=== PATIENT | female | born 1965 | race African-American/Black ===

== ENCOUNTER 2016-10-27 09:59 | Inpatient (IN) | payer MEDICARE, MEDICAID ==
[~2016-10-27] VITALS: Ht 172.7 cm; Wt 165.1 kg
[~2016-10-27 09:59] MED LIST: APIX2.5T PO; CINA30 PO; Midodrine Hcl PO; SEVE800T8 PO
[2016-10-27] MEDS ORDERED: METHYLPREDNISOLONE SOD SUCC 125 MG/2 ML VIAL IV STA (10:21)
[2016-10-27] MEDS ORDERED: NITROGLYCERIN OINT 1GM/INCH UDPKT TD STA (10:21)
[2016-10-27] MEDS ORDERED: IPRATROPIUM BROMIDE (0.02%) 0.5MG/2.5ML NEB HHN STA ×2 (10:21→12:15)
[2016-10-27] MEDS ORDERED: ALBUTEROL (0.083%) 2.5MG/3ML NEB HHN STA ×2 (10:21→12:15)
[2016-10-27] MEDS ORDERED: MAGNESIUM 2 G PREMIX 50 ML IV ONE (10:30)
[2016-10-27] MEDS ORDERED: ALBUTEROL (0.5%) 2.5MG/0.5ML NEB HHN ONE ×2 (10:33→12:25)
[2016-10-27 10:49] LABS: BASOPHILS % 0.7 % (0.0-2.0); EOSINOPHILS % 2.6 % (0.0-5.0); HEMATOCRIT. 34.1 % (36.0-48.0); HEMOGLOBIN. 11.2 g/dL (12.0-16.0); LYMPHOCYTES % 14.2 % (20.0-50.0); MEAN CORPUSCULAR HEMOGLOBIN 36.3 pg (28.0-32.0); MEAN CORPUSCULAR VOLUME 110.6 fL (81.0-99.0); MEAN PLATELET VOLUME 8.6 fl (7.4-10.4); MONOCYTES % 7.3 % (2.0-8.0); NEUTROPHILS % 75.2 % (40.0-76.0); PLATELET 162 x1000/uL (130-400); RED BLOOD CELL COUNT 3.09 mill/uL (4.2-5.4); RED CELL DISTRIBUTION WIDTH 18.1 % (11.6-14.6)
[2016-10-27 10:54] LABS: INR 1.1; PROTHROMBIN TIME 11.7 sec
[2016-10-27 11:00] LABS: HCG SCREEN NEGATIVE
[2016-10-27 11:04] LABS: CARBON DIOXIDE 30 mEq/L (21-32); CHLORIDE 94 mEq/L (98-107); CREATINE KINASE 219 IU/L (26-192); TROPONIN I 0.02 ng/mL (0.00-0.04)
[2016-10-27 11:25] LABS: PLATELET ESTIMATE NORMAL
[2016-10-27] MEDS ORDERED: ONDANSETRON HCL 4MG/2ML VIAL IV PRN (18:45)
[2016-10-27] MEDS ORDERED: DIPHENHYDRAMINE 50MG/ML VIAL IV PRN (18:45)
[2016-10-27] MEDS ORDERED: ACETAMINOPHEN 325MG TABLET PO PRN (18:45)
[2016-10-27] MEDS ORDERED: MAGNESIUM/ALUMINUM HYDROXIDE/SIMETHICONE 30ML UDC PO PRN (18:45)
[2016-10-27] MEDS ORDERED: CLONIDINE 0.1MG TABLET PO PRN (18:45)
[2016-10-27] MEDS ORDERED: LORAZEPAM 1MG TABLET PO PRN (19:30)
[2016-10-27] MEDS ORDERED: SEVELAMER CARBONATE 800 MG TABLET PO SCH (21:00)
[2016-10-27] MEDS: SODIUM CHLORIDE 0.9% INJ 3ML FLUSH IVF SCH (21:33)
[2016-10-27] MEDS: FOLIC ACID/VITAMIN B COMP W-C TABLET PO SCH (21:33)
[2016-10-27] MEDS: GUAIFENESIN 200MG/10ML SUGAR FREE UDC PO PRN (21:34)
[2016-10-27] MEDS ORDERED: SEVELAMER CARBONATE 800 MG TABLET PO NR (22:45)
[2016-10-28] MEDS: SODIUM CHLORIDE 0.9% INJ 3ML FLUSH IVF SCH ×3 (06:34→21:21)
[2016-10-28] MEDS: GUAIFENESIN 200MG/10ML SUGAR FREE UDC PO PRN (09:26)
[2016-10-28] MEDS: MIDODRINE HCL 5MG TABLET PO SCH ×2 (09:27→16:24)
[2016-10-28] MEDS: CINACALCET HCL 30MG TABLET PO SCH (09:27)
[2016-10-28] MEDS: SEVELAMER CARBONATE 800 MG TABLET PO SCH ×3 (09:27→17:01)
[2016-10-28] MEDS: APIXABAN 2.5 MG TABLET PO SCH ×2 (09:28→16:31)
[2016-10-28] MEDS: FOLIC ACID/VITAMIN B COMP W-C TABLET PO SCH (09:28)
[2016-10-28] MEDS: IPRATROPIUM/ALBUTEROL 0.5-3(2.5)MG/3ML NEB INH PRN ×2 (12:53→22:23)
[2016-10-28] MEDS ORDERED: METHYLPREDNISOLONE SOD SUCC 125 MG/2 ML VIAL IV NR (13:00)
[2016-10-28] MEDS ORDERED: METHYLPREDNISOLONE SOD SUCC 40 MG/ML VIAL IV SCH (13:34)
[2016-10-28] MEDS: METHYLPREDNISOLONE SOD SUCC 40 MG/ML VIAL IV SCH (21:21)
[2016-10-29] MEDS: IPRATROPIUM/ALBUTEROL 0.5-3(2.5)MG/3ML NEB INH PRN ×2 (00:51→04:38)
[2016-10-29] MEDS: SODIUM CHLORIDE 0.9% INJ 3ML FLUSH IVF SCH ×3 (06:32→22:02)
[2016-10-29] MEDS: METHYLPREDNISOLONE SOD SUCC 40 MG/ML VIAL IV SCH ×2 (06:32→22:03)
[2016-10-29] MEDS: APIXABAN 2.5 MG TABLET PO SCH ×3 (08:18→17:59)
[2016-10-29] MEDS: CINACALCET HCL 30MG TABLET PO SCH (08:18)
[2016-10-29] MEDS: SEVELAMER CARBONATE 800 MG TABLET PO SCH ×3 (08:18→17:55)
[2016-10-29] MEDS: FOLIC ACID/VITAMIN B COMP W-C TABLET PO SCH (08:18)
[2016-10-29] MEDS: MIDODRINE HCL 5MG TABLET PO SCH ×2 (08:19→17:55)
[2016-10-30] MEDS: MIDODRINE HCL 5MG TABLET PO SCH ×2 (05:38→18:05)
[2016-10-30] MEDS: SODIUM CHLORIDE 0.9% INJ 3ML FLUSH IVF SCH ×3 (06:26→22:00)
[2016-10-30 07:43] LABS: HEMATOCRIT. 35.5 % (36.0-48.0); HEMOGLOBIN. 11.8 g/dL (12.0-16.0); MEAN CORPUSCULAR HEMOGLOBIN 36.4 pg (28.0-32.0); PLATELET 172 x1000/uL (130-400); RED BLOOD CELL COUNT 3.23 mill/uL (4.2-5.4); RED CELL DISTRIBUTION WIDTH 17.6 % (11.6-14.6)
[2016-10-30 07:45] LABS: PHOSPHORUS 4.3 mg/dL (2.5-4.9)
[2016-10-30] MEDS: METHYLPREDNISOLONE SOD SUCC 40 MG/ML VIAL IV SCH (10:03)
[2016-10-30] MEDS: SEVELAMER CARBONATE 800 MG TABLET PO SCH ×3 (10:04→18:04)
[2016-10-30] MEDS: APIXABAN 2.5 MG TABLET PO SCH ×2 (10:04→18:06)
[2016-10-30] MEDS: CINACALCET HCL 30MG TABLET PO SCH (10:04)
[2016-10-30] MEDS: FOLIC ACID/VITAMIN B COMP W-C TABLET PO SCH (10:04)
[2016-10-30 12:13] LABS: PLATELET ESTIMATE NORMAL
[2016-10-31] MEDS: SEVELAMER CARBONATE 800 MG TABLET PO SCH (06:30)
[2016-10-31] MEDS: CINACALCET HCL 30MG TABLET PO SCH (08:46)
[2016-10-31] MEDS: FOLIC ACID/VITAMIN B COMP W-C TABLET PO SCH (08:46)
[2016-10-31] MEDS: MIDODRINE HCL 5MG TABLET PO SCH (08:47)
[2016-10-31] MEDS: APIXABAN 2.5 MG TABLET PO SCH (08:49)
[2016-10-31] MEDS ORDERED: PREDNISONE 20MG TABLET PO SCH (09:00)
[2016-10-31 10:26] VITALS: BP 109/86
== END 2016-10-31 14:10 | disposition home or self-care (01) | DRG 291 ==
LOC: ER 10:00 → 8WST 12:04 → EDBEDREQ 12:06 → ENRESERV 18:31
PROVIDERS: ADMIT Internal Medicine; ATTEND Internal Medicine
PROC: 5A1D60Z (ICD-10-PCS; principal; 2016-10-28)
DX: I50.33 Acute on chronic diastolic (congestive) heart failure (principal); N18.6 End stage renal disease; J96.00 Acute respiratory failure, unspecified whether with hypoxia or hypercapnia; Z68.43 Body mass index [BMI] 50.0-59.9, adult; J45.901 Unspecified asthma with (acute) exacerbation; J44.1 Chronic obstructive pulmonary disease with (acute) exacerbation; I27.81 Cor pulmonale (chronic); E66.01 Morbid (severe) obesity due to excess calories; I48.2 Chronic atrial fibrillation; D63.1 Anemia in chronic kidney disease; I27.2 Other secondary pulmonary hypertension; Z79.899 Other long term (current) drug therapy; Z83.3 Family history of diabetes mellitus; Z82.49 Family history of ischemic heart disease and other diseases of the circulatory system; Z99.2 Dependence on renal dialysis; Z80.9 Family history of malignant neoplasm, unspecified
CPT/HCPCS: 36415; 71010; 80053; 80069; 82550; 82962; 83605; 83690; 84484; 84703; 85025; 85610; 87040; 93005; 94640; 94664; 96365; 96366; 96375; 99291; J2920; J2930; J3475; J7030; J7512; J7611; J7620

== ENCOUNTER 2016-12-04 09:19 | Inpatient (IN) | payer MEDICARE, MEDICAID ==
[~2016-12-04] VITALS: Ht 172.7 cm; Wt 164.4 kg
[2016-12-04] MEDS ORDERED: IPRATROPIUM BROMIDE (0.02%) 0.5MG/2.5ML NEB HHN STA (09:47)
[2016-12-04] MEDS ORDERED: ALBUTEROL (0.083%) 2.5MG/3ML NEB HHN STA (09:47)
[2016-12-04] MEDS ORDERED: METHYLPREDNISOLONE SOD SUCC 125 MG/2 ML VIAL IV STA (09:47)
[2016-12-04] MEDS ORDERED: MAGNESIUM 2 G PREMIX 50 ML IV ONE (10:00)
[2016-12-04] MEDS ORDERED: LORAZEPAM 2MG/ML CPJ IV ONE (10:00)
[2016-12-04 10:16] LABS: BASOPHILS % 0.5 % (0.0-2.0); EOSINOPHILS % 1.2 % (0.0-5.0); HEMATOCRIT. 35.7 % (36.0-48.0); HEMOGLOBIN. 11.6 g/dL (12.0-16.0); LYMPHOCYTES % 10.3 % (20.0-50.0); MEAN CORPUSCULAR HEMOGLOBIN 35.6 pg (28.0-32.0); MEAN CORPUSCULAR VOLUME 109.9 fL (81.0-99.0); MEAN PLATELET VOLUME 8.7 fl (7.4-10.4); MONOCYTES % 6.3 % (2.0-8.0); NEUTROPHILS % 81.7 % (40.0-76.0); PLATELET 158 x1000/uL (130-400); RED BLOOD CELL COUNT 3.25 mill/uL (4.2-5.4); RED CELL DISTRIBUTION WIDTH 18.4 % (11.6-14.6)
[2016-12-04 10:27] LABS: INR 1.2; PROTHROMBIN TIME 12.4 sec (9.4-11.6)
[2016-12-04 10:34] LABS: CARBON DIOXIDE 32 mEq/L (21-32); CHLORIDE 96 mEq/L (98-107); TROPONIN I 0.03 ng/mL (0.00-0.04)
[2016-12-04] MEDS ORDERED: ENOXAPARIN 40MG/0.4ML SYR SUBCUT SCH (11:45)
[2016-12-04] MEDS ORDERED: HYDROCODONE/ACETAMINOPHEN 5/325MG TABLET PO PRN (11:45)
[2016-12-04] MEDS ORDERED: IPRATROPIUM/ALBUTEROL 0.5-3(2.5)MG/3ML NEB INH PRN (11:45)
[2016-12-04] MEDS ORDERED: HYDROMORPHONE HCL/PF 2MG/ML CPJ IV PRN (11:45)
[2016-12-04] MEDS ORDERED: DIPHENHYDRAMINE 50MG/ML VIAL IV PRN (11:45)
[2016-12-04] MEDS ORDERED: ONDANSETRON HCL 4MG/2ML VIAL IV PRN (11:45)
[2016-12-04] MEDS ORDERED: DOCUSATE SODIUM 100MG CAPSULE PO PRN (11:45)
[2016-12-04] MEDS ORDERED: GUAIFENESIN 200MG/10ML SUGAR FREE UDC PO PRN (11:45)
[2016-12-04] MEDS ORDERED: MAGNESIUM/ALUMINUM HYDROXIDE/SIMETHICONE 30ML UDC PO PRN (11:45)
[2016-12-04] MEDS ORDERED: NA PHOS,M-B/NA PHOS,DI-BA ENEMA 118ML PR PRN (11:45)
[2016-12-04] MEDS ORDERED: CLONIDINE 0.1MG TABLET PO PRN (11:45)
[2016-12-04] MEDS ORDERED: LORAZEPAM 2MG/ML CPJ IV PRN (11:45)
[2016-12-04] MEDS ORDERED: LEVOFLOXACIN 500MG PREMIX 100 ML IV SCH (15:00)
[2016-12-04] MEDS: METHYLPREDNISOLONE SOD SUCC 125 MG/2 ML VIAL IV SCH ×2 (19:39→23:28)
[2016-12-04] MEDS: APIXABAN 2.5 MG TABLET PO SCH (21:34)
[2016-12-04] MEDS: GUAIFENESIN 600MG ER TABLET PO SCH (21:41)
[2016-12-05] MEDS: IPRATROPIUM/ALBUTEROL 0.5-3(2.5)MG/3ML NEB HHN SCH ×6 (00:10→21:30)
[2016-12-05] MEDS: BUDESONIDE 0.5MG/2ML NEB HHN SCH ×2 (00:10→12:51)
[2016-12-05] MEDS: SEVELAMER CARBONATE 800 MG TABLET PO SCH ×4 (06:10→21:11)
[2016-12-05] MEDS: METHYLPREDNISOLONE SOD SUCC 125 MG/2 ML VIAL IV SCH ×4 (06:10→23:22)
[2016-12-05 06:48] LABS: HEMATOCRIT. 37.6 % (36.0-48.0); HEMOGLOBIN. 12.1 g/dL (12.0-16.0); MEAN CORPUSCULAR HEMOGLOBIN 35.5 pg (28.0-32.0); MEAN CORPUSCULAR VOLUME 110.5 fL (81.0-99.0); MEAN PLATELET VOLUME 9.3 fl (7.4-10.4); PLATELET 169 x1000/uL (130-400); RED CELL DISTRIBUTION WIDTH 18.1 % (11.6-14.6)
[2016-12-05 07:18] LABS: CHLORIDE 93 mEq/L (98-107)
[2016-12-05 07:36] LABS: CARBON DIOXIDE 28 mEq/L (21-32); HDL CHOLESTEROL 41 mg/dL (40-59); LDL CHOLESTEROL 37 mg/dL (5-100); T4 FREE 0.94 ng/dL (0.76-1.46)
[2016-12-05] MEDS: APIXABAN 2.5 MG TABLET PO SCH (08:10)
[2016-12-05] MEDS: GUAIFENESIN 600MG ER TABLET PO SCH ×2 (08:10→21:11)
[2016-12-05] MEDS: CINACALCET HCL 30MG TABLET PO SCH (08:10)
[2016-12-05 10:06] LABS: PLATELET ESTIMATE NORMAL
[2016-12-05] MEDS: ACETAMINOPHEN 325MG TABLET PO PRN (16:56)
[2016-12-05] MEDS: APIXABAN 5 MG TABLET PO SCH (17:04)
[2016-12-06] MEDS: IPRATROPIUM/ALBUTEROL 0.5-3(2.5)MG/3ML NEB HHN SCH ×6 (01:39→19:50)
[2016-12-06] MEDS: BUDESONIDE 0.5MG/2ML NEB HHN SCH ×3 (01:40→19:50)
[2016-12-06] MEDS: METHYLPREDNISOLONE SOD SUCC 125 MG/2 ML VIAL IV SCH ×2 (06:00→12:00)
[2016-12-06] MEDS: SEVELAMER CARBONATE 800 MG TABLET PO SCH ×4 (06:49→20:31)
[2016-12-06] MEDS: APIXABAN 5 MG TABLET PO SCH ×2 (08:02→17:03)
[2016-12-06] MEDS: GUAIFENESIN 600MG ER TABLET PO SCH ×3 (08:02→20:31)
[2016-12-06] MEDS: CINACALCET HCL 30MG TABLET PO SCH (08:02)
[2016-12-06] MEDS ORDERED: LEVOFLOXACIN 500MG TABLET PO SCH (14:00)
[2016-12-06] MEDS: PREDNISONE 20MG TABLET PO SCH ×2 (14:04→20:32)
[2016-12-06] MEDS ORDERED: LEVOFLOXACIN 500MG PREMIX 100 ML IV SCH ×2 (15:00)
[2016-12-06] MEDS: ACETAMINOPHEN 325MG TABLET PO PRN (17:04)
[2016-12-07] MEDS: IPRATROPIUM/ALBUTEROL 0.5-3(2.5)MG/3ML NEB HHN SCH ×3 (00:11→07:33)
[2016-12-07] MEDS: SEVELAMER CARBONATE 800 MG TABLET PO SCH (06:34)
[2016-12-07] MEDS: PREDNISONE 20MG TABLET PO SCH (08:10)
[2016-12-07] MEDS: CINACALCET HCL 30MG TABLET PO SCH (08:10)
[2016-12-07] MEDS: GUAIFENESIN 600MG ER TABLET PO SCH (09:20)
[2016-12-07] MEDS: APIXABAN 5 MG TABLET PO SCH (09:20)
[2016-12-07 09:28] VITALS: BP 131/76
== END 2016-12-07 09:50 | disposition home or self-care (01) | DRG 291 ==
LOC: ER 10:05 → 8WST 11:34 → ENRESERV 15:35
PROVIDERS: ADMIT Internal Medicine; ATTEND Internal Medicine
PROC: 5A1D60Z (ICD-10-PCS; principal; 2016-12-05)
DX: I13.2 Hypertensive heart and chronic kidney disease with heart failure and with stage 5 chronic kidney disease, or end stage renal disease (principal); I50.33 Acute on chronic diastolic (congestive) heart failure; J96.00 Acute respiratory failure, unspecified whether with hypoxia or hypercapnia; I95.89 Other hypotension; E46 Unspecified protein-calorie malnutrition; N18.6 End stage renal disease; I27.2 Other secondary pulmonary hypertension; I42.9 Cardiomyopathy, unspecified; I48.2 Chronic atrial fibrillation; J45.901 Unspecified asthma with (acute) exacerbation; J44.1 Chronic obstructive pulmonary disease with (acute) exacerbation; Z68.43 Body mass index [BMI] 50.0-59.9, adult; I27.81 Cor pulmonale (chronic); E66.9 Obesity, unspecified; E87.6 Hypokalemia; D63.1 Anemia in chronic kidney disease; F41.9 Anxiety disorder, unspecified; I25.10 Atherosclerotic heart disease of native coronary artery without angina pectoris; Z99.2 Dependence on renal dialysis; Z79.01 Long term (current) use of anticoagulants; Z79.899 Other long term (current) drug therapy
CPT/HCPCS: 36415; 71010; 80048; 80053; 80061; 83605; 83690; 83880; 84439; 84443; 84484; 85025; 85610; 87040; 93005; 93970; 94640; 96365; 96367; 96375; 96376; 99285; C1893; J1956; J2060; J2930; J3475; J7030; J7512; J7611; J7620; J7626

== ENCOUNTER 2017-02-10 19:36 | Inpatient (IN) | payer MEDICARE, MEDICAID ==
[~2017-02-10] VITALS: Ht 172.7 cm; Wt 168.3 kg
[2017-02-10] MEDS ORDERED: MORPHINE SULFATE 4 MG/ML CPJ (NOT FOR IM USE) IV STA (20:49)
[2017-02-10] MEDS ORDERED: ONDANSETRON HCL 4MG/2ML VIAL IV STA (20:49)
[2017-02-10] MEDS ORDERED: SODIUM CHLORIDE 0.9% 500 ML IV ONE (20:49)
[2017-02-10] MEDS ORDERED: MORPHINE SULFATE 10 MG/ML CPJ IV NR (20:57)
[2017-02-10] MEDS ORDERED: VANCOMYCIN 1 G PREMIX 200 ML IV SCH (21:00)
[2017-02-10] MEDS ORDERED: ASPIRIN 325MG EC TABLET PO ONE (21:00)
[2017-02-10] MEDS ORDERED: DIPHENHYDRAMINE 50MG/ML VIAL IV ONE (21:15)
[2017-02-10 21:29] LABS: HEMATOCRIT. 39.4 % (36.0-48.0); MEAN CORPUSCULAR HEMOGLOBIN 35.8 pg (28.0-32.0); MEAN PLATELET VOLUME 9.9 fl (7.4-10.4); PLATELET 137 x1000/uL (130-400); RED BLOOD CELL COUNT 3.65 mill/uL (4.2-5.4); RED CELL DISTRIBUTION WIDTH 20.1 % (11.6-14.6)
[2017-02-10 21:37] LABS: INR 1.3; PARTIAL THROMBOPLASTIN TIME 26.8 sec (23.4-31.0); PROTHROMBIN TIME 13.4 sec (9.4-11.6)
[2017-02-10 21:44] LABS: CARBON DIOXIDE 32 mEq/L (21-32); CHLORIDE 96 mEq/L (98-107); TROPONIN I 0.02 ng/mL (0.00-0.04)
[2017-02-10 21:50] LABS: NUCLEATED RED BLOOD CELLS 2 /100 WBC; PLATELET ESTIMATE NORMAL
[2017-02-10] MEDS ORDERED: LEVOFLOXACIN 750MG PREMIX 150 ML IV ONE (23:00)
[2017-02-11 00:25] VITALS: BP 87/69
[2017-02-11 01:26] VITALS: BP 106/71
[2017-02-11] MEDS ORDERED: IPRATROPIUM/ALBUTEROL 0.5-3(2.5)MG/3ML NEB HHN PRN (02:45)
[2017-02-11] MEDS ORDERED: HYDROCODONE/ACETAMINOPHEN 5/325MG TABLET PO PRN (03:00)
[2017-02-11 04:00] VITALS: BP 100/81
[2017-02-11] MEDS: DIPHENHYDRAMINE 25MG CAPSULE PO PRN (04:44)
[2017-02-11] MEDS ORDERED: CEFTRIAXONE 1 G PREMIX 50 ML IV SCH (05:00)
[2017-02-11] MEDS ORDERED: VANCOMYCIN 1 G PREMIX 200 ML IV NR (05:00)
[2017-02-11] MEDS ORDERED: WARF1TAB46 PO (05:09)
[2017-02-11 08:00] VITALS: BP 103/73
[2017-02-11] MEDS ORDERED: VANCOMYCIN 750 MG PREMIX 150 ML IV NR (11:00)
[2017-02-11 12:00] VITALS: BP 105/70
[2017-02-11] MEDS: FAMOTIDINE 20MG TABLET PO SCH (14:26)
[2017-02-11] MEDS: MONTELUKAST SODIUM 10MG TABLET PO SCH (18:11)
[2017-02-11] MEDS: APIXABAN 5 MG TABLET PO SCH (18:11)
[2017-02-11 20:00] VITALS: BP 92/50
[2017-02-11] MEDS ORDERED: FAMOTIDINE 20MG TABLET PO SCH (21:00)
[2017-02-11] MEDS: AMLODIPINE 2.5MG TABLET PO SCH (21:00)
[2017-02-11] MEDS: IPRATROPIUM/ALBUTEROL 0.5-3(2.5)MG/3ML NEB HHN SCH (21:10)
[2017-02-11] MEDS: BUDESONIDE 0.5MG/2ML NEB HHN SCH (21:10)
[2017-02-12] VITALS (7 sets, daily range): BP systolic 92–107; BP diastolic 46–60
[2017-02-12] MEDS: LORATADINE 10MG TABLET PO SCH ×2 (00:22→20:28)
[2017-02-12] MEDS: BUDESONIDE 0.5MG/2ML NEB HHN SCH ×3 (01:43→19:41)
[2017-02-12] MEDS: IPRATROPIUM/ALBUTEROL 0.5-3(2.5)MG/3ML NEB HHN SCH ×3 (01:43→19:41)
[2017-02-12 07:21] LABS: BASOPHILS % 0.7 % (0.0-2.0); EOSINOPHILS % 1.9 % (0.0-5.0); HEMATOCRIT. 39.7 % (36.0-48.0); MEAN CORPUSCULAR HEMOGLOBIN 35.9 pg (28.0-32.0); MEAN CORPUSCULAR VOLUME 109.9 fL (81.0-99.0); MONOCYTES % 8.5 % (2.0-8.0); NEUTROPHILS % 76.9 % (40.0-76.0); PLATELET 132 x1000/uL (130-400); RED BLOOD CELL COUNT 3.61 mill/uL (4.2-5.4); RED CELL DISTRIBUTION WIDTH 20.1 % (11.6-14.6)
[2017-02-12] MEDS: APIXABAN 5 MG TABLET PO SCH ×2 (08:31→16:43)
[2017-02-12] MEDS: FAMOTIDINE 20MG TABLET PO SCH (08:32)
[2017-02-12] MEDS: SEVELAMER CARBONATE 800 MG TABLET PO SCH ×3 (08:33→16:42)
[2017-02-12] MEDS: AMLODIPINE 2.5MG TABLET PO SCH ×2 (08:33→20:52)
[2017-02-12] MEDS ORDERED: SEVELAMER CARBONATE 800 MG TABLET PO SCH (09:15)
[2017-02-12 09:57] LABS: CARBON DIOXIDE 26 mEq/L (21-32); CHLORIDE 97 mEq/L (98-107); PHOSPHORUS 2.4 mg/dL (2.5-4.9)
[2017-02-12] MEDS: FOLIC ACID/VITAMIN B COMP W-C TABLET PO SCH (10:02)
[2017-02-12] MEDS: DIPHENHYDRAMINE 25MG CAPSULE PO PRN (12:49)
[2017-02-12] MEDS ORDERED: GUAIFENESIN-DM 200MG-20MG/10ML UDC PO PRN (14:15)
[2017-02-12] MEDS: CINACALCET HCL 30MG TABLET PO SCH (16:42)
[2017-02-12] MEDS: MONTELUKAST SODIUM 10MG TABLET PO SCH (16:43)
[2017-02-13] VITALS: BP 102/56
[2017-02-13] MEDS: DIPHENHYDRAMINE 25MG CAPSULE PO PRN (01:27)
[2017-02-13 04:00] VITALS: BP 105/63
[2017-02-13] MEDS: SEVELAMER CARBONATE 800 MG TABLET PO SCH ×2 (07:40→15:11)
[2017-02-13] MEDS: IPRATROPIUM/ALBUTEROL 0.5-3(2.5)MG/3ML NEB HHN SCH ×3 (07:44→15:38)
[2017-02-13] MEDS: BUDESONIDE 0.5MG/2ML NEB HHN SCH (07:45)
[2017-02-13 08:00] VITALS: BP 126/69
[2017-02-13 08:00] LABS: BASOPHILS % 0.8 % (0.0-2.0); EOSINOPHILS % 1.7 % (0.0-5.0); HEMATOCRIT. 39.9 % (36.0-48.0); LYMPHOCYTES % 12.8 % (20.0-50.0); MEAN CORPUSCULAR HEMOGLOBIN 35.3 pg (28.0-32.0); MEAN CORPUSCULAR VOLUME 108.6 fL (81.0-99.0); NEUTROPHILS % 74.7 % (40.0-76.0); PLATELET 142 x1000/uL (130-400); RED BLOOD CELL COUNT 3.67 mill/uL (4.2-5.4); RED CELL DISTRIBUTION WIDTH 20.3 % (11.6-14.6)
[2017-02-13 08:34] LABS: CHLORIDE 95 mEq/L (98-107)
[2017-02-13 08:44] LABS: CARBON DIOXIDE 24 mEq/L (21-32); PHOSPHORUS 2.6 mg/dL (2.5-4.9)
[2017-02-13] MEDS: AMLODIPINE 2.5MG TABLET PO SCH (09:00)
[2017-02-13 12:00] VITALS: BP 101/52
[2017-02-13] MEDS: CINACALCET HCL 30MG TABLET PO SCH (15:10)
[2017-02-13] MEDS: FOLIC ACID/VITAMIN B COMP W-C TABLET PO SCH (15:11)
[2017-02-13] MEDS: APIXABAN 5 MG TABLET PO SCH (15:11)
[2017-02-13] MEDS: FAMOTIDINE 20MG TABLET PO SCH (15:11)
[2017-02-13 15:42] VITALS: BP 104/57
[2017-02-13 16:00] VITALS: BP 104/57
[2017-02-13] MEDS ORDERED: VANCOMYCIN 750 MG PREMIX 150 ML IV SCH (17:00)
== END 2017-02-13 17:35 | disposition home or self-care (01) | DRG 291 ==
LOC: ER 19:36 → 8WST 23:31 → EDBEDREQ 23:32 → EDBEDREQTM 23:32 → ENRESERV 23:39 → CANRESERV 23:58
PROVIDERS: ADMIT Family Medicine; ATTEND Family Medicine
PROC: 5A1D70Z Performance of Urinary Filtration, Intermittent, Less than 6 Hours Per Day (ICD-10-PCS; principal; 2017-02-13)
DX: I13.2 Hypertensive heart and chronic kidney disease with heart failure and with stage 5 chronic kidney disease, or end stage renal disease (principal); J96.00 Acute respiratory failure, unspecified whether with hypoxia or hypercapnia; E11.22 Type 2 diabetes mellitus with diabetic chronic kidney disease; I27.20 Pulmonary hypertension, unspecified; J44.1 Chronic obstructive pulmonary disease with (acute) exacerbation; E66.2 Morbid (severe) obesity with alveolar hypoventilation; J45.901 Unspecified asthma with (acute) exacerbation; R65.10 Systemic inflammatory response syndrome (SIRS) of non-infectious origin without acute organ dysfunction; I48.2 Chronic atrial fibrillation; N18.6 End stage renal disease; I50.33 Acute on chronic diastolic (congestive) heart failure; R18.8 Other ascites; L03.115 Cellulitis of right lower limb; L03.116 Cellulitis of left lower limb; Z68.43 Body mass index [BMI] 50.0-59.9, adult; I83.90 Asymptomatic varicose veins of unspecified lower extremity; I42.9 Cardiomyopathy, unspecified; I27.81 Cor pulmonale (chronic); E21.3 Hyperparathyroidism, unspecified; E78.5 Hyperlipidemia, unspecified; Z99.2 Dependence on renal dialysis; Z83.3 Family history of diabetes mellitus; Z82.49 Family history of ischemic heart disease and other diseases of the circulatory system; Z80.1 Family history of malignant neoplasm of trachea, bronchus and lung
CPT/HCPCS: 36415; 71010; 74176; 80053; 80202; 83605; 83735; 83880; 84100; 84484; 85025; 85610; 85730; 87040; 93005; 93970; 94640; 94664; 96365; 96366; 96367; 96375; 99291; J0696; J1200; J1956; J2270; J2405; J3370; J7030; J7040; J7620; J7626; Q0163

== ENCOUNTER 2020-07-17 15:19 | Emergency (ER) | payer MEDICARE, MEDICAID ==
[~2020-07-17] VITALS: Ht 165.1 cm; Wt 130.0 kg
[~2020-07-17 15:19] MED LIST changes: +WARF1TAB46 PO
[2020-07-17] MEDS ORDERED: LIDOCAINE HCL/EPINEPHRINE 1%-EPI 1:100,000 50 ML VIAL INFIL ONE (16:45)
[2020-07-17] MEDS ORDERED: TRANEXAMIC ACID 1,000 MG/10 ML TP ONE (16:45)
[2020-07-17] MEDS ORDERED: LIDOCAINE HCL/EPINEPHRINE 1%-EPI 1:100,000 20 ML VIAL INFIL SCH (16:46)
[2020-07-17 17:16] LABS: BASOPHILS % 0.4 % (0.0-2.0); EOSINOPHILS % 2.7 % (0.0-5.0); HEMOGLOBIN. 11.5 g/dL (12.0-16.0); LYMPHOCYTES % 13.8 % (20.0-50.0); MEAN CORPUSCULAR HEMOGLOBIN 31.1 pg (28.0-32.0); MEAN CORPUSCULAR VOLUME 94.8 fL (81.0-99.0); MEAN PLATELET VOLUME 9.3 fl (7.4-10.4); MONOCYTES % 13.6 % (2.0-8.0); NEUTROPHILS % 69.5 % (40.0-76.0); PLATELET 201 x1000/uL (130-400); RED CELL DISTRIBUTION WIDTH 15.8 % (11.6-14.6)
[2020-07-17 17:18] LABS: CHLORIDE 97 mEq/L (98-107)
[2020-07-17 17:21] LABS: INR 1.2; PROTHROMBIN TIME 12.4 sec (9.6-11.0)
[2020-07-17] MEDS ORDERED: DESMOPRESSIN ACETATE 4MCG/ML AMP IV ONE (18:30)
[2020-07-17] MEDS ORDERED: DESMOPRESSIN ACETATE IVPB 20 MCG in SODIUM CHLORIDE 0.9% 50 ML IV NR (19:00)
[2020-07-17] MEDS ORDERED: CEPH500T MT (21:33)
[2020-07-17 21:57] VITALS: BP 101/58
== END 2020-07-17 21:59 | disposition home or self-care (01) ==
LOC: ER 15:19
DX: T82.838A Hemorrhage due to vascular prosthetic devices, implants and grafts, initial encounter (principal); Y82.8 Other medical devices associated with adverse incidents; Y92.89 Other specified places as the place of occurrence of the external cause; N18.6 End stage renal disease; D64.9 Anemia, unspecified; I50.9 Heart failure, unspecified; J45.909 Unspecified asthma, uncomplicated; I48.91 Unspecified atrial fibrillation; Z99.2 Dependence on renal dialysis; Z79.01 Long term (current) use of anticoagulants
CPT/HCPCS: 36415; 80053; 85025; 85610; 96365; 99285; J2597; J3490

== ENCOUNTER → 2021-01-08 | Outpatient (CLI) | payer MEDICARE, MEDICAID ==
[~2021-01-08] MED LIST changes: +AMI2 PO; +APIX5TAB PO; +CEPH500T MT; +LEVO50TA8 PO; +MACI10TA2 PO; +MIDO10TA MT; +SEVE800T8 MT; +TREP1.743 IH
== END | disposition home or self-care (01) ==
LOC: LAB 08:50
PROVIDERS: ATTEND Internal Medicine Gastroenterology
DX: Z01.812 Encounter for preprocedural laboratory examination (principal); Z20.822 Contact with and (suspected) exposure to COVID-19
CPT/HCPCS: 87426

== ENCOUNTER 2021-01-09 07:38 | Day surgery (SDC) | payer MEDICARE, MEDICAID ==
[~2021-01-09] VITALS: Ht 170.2 cm; Wt 123.4 kg
[~2021-01-09 07:38] MED LIST changes: -CINA30 PO; -SEVE800T8 PO; -WARF1TAB46 PO
[2021-01-09] MEDS ORDERED: LACTATED RINGERS 1,000 ML IV SCH (08:30)
[2021-01-09 08:41] LABS: HEMATOCRIT. 29.8 % (36.0-48.0); HEMOGLOBIN. 9.9 g/dL (12.0-16.0); MEAN CORPUSCULAR HEMOGLOBIN 32.6 pg (28.0-32.0); MEAN CORPUSCULAR VOLUME 98.2 fL (81.0-99.0); PLATELET 123 x1000/uL (130-400); RED BLOOD CELL COUNT 3.04 mill/uL (4.2-5.4); RED CELL DISTRIBUTION WIDTH 18.5 % (11.6-14.6)
[2021-01-09 08:53] LABS: INR 1.3; PARTIAL THROMBOPLASTIN TIME 33.5 sec (23.4-31.0); PROTHROMBIN TIME 14.1 sec (9.6-11.0)
[2021-01-09 09:42] LABS: PLATELET ESTIMATE SLIGHTLY DECREASED
[2021-01-09] MEDS ORDERED: GLYCOPYRROLATE 0.2 MG/ML 2ML VIAL ONE (11:32)
[2021-01-09] MEDS ORDERED: HYDROMORPHONE HCL/PF 2MG/ML (OR) ONE (11:34)
[2021-01-09] MEDS ORDERED: PROPOFOL 200MG/20ML VIAL IV ONE (11:36)
[2021-01-09] MEDS ORDERED: DEXAMETHASONE 4MG/ML 1ML VIAL ONE (11:37)
[2021-01-09] MEDS ORDERED: LIDOCAINE HCL/PF 1% 10 MG/ML 5ML VIAL ONE (11:37)
[2021-01-09] MEDS: PHYTONADIONE 10MG/ML AMP SUBCUT NR ×2 (11:43→18:13)
[2021-01-09] MEDS ORDERED: MIDAZOLAM HCL 5 MG/5 ML VIAL ONE ×2 (11:54→12:44)
[2021-01-09] MEDS ORDERED: ONDANSETRON HCL 4MG/2ML INJ IV PRN (13:00)
[2021-01-09] MEDS ORDERED: HYDROMORPHONE HCL/PF 2MG/ML CPJ IV PRN (13:00)
[2021-01-09] MEDS ORDERED: LABETALOL 5MG/ML SYR 20 MG/4 ML SYRINGE IV PRN (13:00)
[2021-01-09] MEDS ORDERED: MEPERIDINE HCL/PF 25MG/ML CPJ IV PRN (13:00)
[2021-01-09 15:09] LABS: HEPATITIS B SURFACE AB 63.4 mIU/mL
[2021-01-09 15:19] LABS: HEPATITIS B SURFACE ANTIGEN NEGATIVE
== END 2021-01-09 19:40 | disposition home or self-care (01) ==
LOC: OR 07:38
PROVIDERS: ATTEND Internal Medicine Gastroenterology
DX: D64.9 Anemia, unspecified (principal); R10.13 Epigastric pain; K63.5 Polyp of colon; K29.50 Unspecified chronic gastritis without bleeding; K31.89 Other diseases of stomach and duodenum; K63.89 Other specified diseases of intestine; I85.00 Esophageal varices without bleeding; K74.60 Unspecified cirrhosis of liver; K80.20 Calculus of gallbladder without cholecystitis without obstruction; I12.0 Hypertensive chronic kidney disease with stage 5 chronic kidney disease or end stage renal disease; E03.9 Hypothyroidism, unspecified; N18.6 End stage renal disease; Z79.899 Other long term (current) drug therapy; Z98.890 Other specified postprocedural states; Z88.0 Allergy status to penicillin; Z88.8 Allergy status to other drugs, medicaments and biological substances; Z82.49 Family history of ischemic heart disease and other diseases of the circulatory system; Z83.3 Family history of diabetes mellitus
CPT/HCPCS: 36415; 43239; 43251; 45385; 76700; 80048; 80061; 80076; 82105; 82977; 84436; 84443; 85025; 85610; 85730; 86706; 86803; 87340; 88305; 88312; 88313; 93005; J1100; J1170; J2250; J2704; J3430; J3490; J7040